=== PATIENT | female | born 2005 | race Hispanic/Latino ===

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

== ENCOUNTER 2024-06-14 16:36 | Emergency (ER) | payer SELFPAY ==
[~2024-06-14] VITALS: Ht 167.6 cm; Wt 133.8 kg
[2024-06-14 19:49] VITALS: BP 130/65; PULSE 72; RESP 16; TEMP 98.6; O2SAT 99
== END 2024-06-14 20:37 | disposition home or self-care (01) ==
LOC: EDH 16:36
DX: S92.534A Nondisplaced fracture of distal phalanx of right lesser toe(s), initial encounter for closed fracture (principal); Z79.899 Other long term (current) drug therapy; X58.XXXA Exposure to other specified factors, initial encounter; Y93.89 Activity, other specified; Y92.89 Other specified places as the place of occurrence of the external cause; Y99.8 Other external cause status
CPT/HCPCS: 73660

== ENCOUNTER 2025-05-30 08:15 | Emergency (ER) | payer SELFPAY ==
[~2025-05-30] VITALS: Ht 167.6 cm; Wt 115.7 kg
--- NOTE | 2025-05-30 08:32 | ERN ---
General Chief Complaint: Abdominal Pain Stated Complaint: ABDOMINAL PAIN Time Seen by MD: 08:17 Source: patient History of Present Illness Initial Comments Patient is a 19-year-old female coming in complaining of abdominal pain. Long with the abdominal pain patient states he has been having diarrhea. She states he has been having fever or chills. Allergies: Coded Allergies: No Known Drug Allergies (Unverified Allergy, Unknown, 06/20/23) Home Meds Active Scripts Nitrofurantoin/Nitrofuran Mac (Macrobid) 100 Mg Cap, 1 CAP PO BID for 7 Days, #14 CAP 0 Refills Prov:[employer]TI [employer]IST 06/21/23 Past Medical History Past Medical History: No Pertinent History Medical History Other: denies pmhx Past Surgical History: None Female( History) LMP: May 17, 2025 ROS Dictation CONSTITUTIONAL: No chills, no fever, no weakness, no diaphoresis, no malaise. HEAD/FACE: No signs of trauma. EENT: No eye pain, no blurred vision, no tearing, no double vision, no ear pain, no ear discharge, no nose pain, no nasal congestion, no throat pain, no throat swelling, no mouth pain. RESPIRATORY: No cough, no orthopnea, no SOB, no stridor, no wheezing. CARDIOVASCULAR: No chest pain, no edema, no palpitations, no syncope. GASTROINTESTINAL/ABDOMINAL: abdominal pain, no constipation, diarrhea, no nausea, no vomiting. GENITOURINARY: No abnormal discharge, no dysuria, no frequent urination, no hematuria. No complaints of pain in the genitals. MUSCULOSKELETAL: No back pain, no gout, no joint pain, no joint swelling, no muscle pain, no muscle stiffness, no neck pain. INTEGUMENTARY: No change in color, no change in hair/nails, no dryness, no lesion, no lumps, no rash. NEUROLOGICAL/PSYCH: No anxiety, not depressed, no emotional problem, no headache, no numbness, no pre-existing deficit, no history of seizures, no tremors, no weakness. HEMATOLOGIC/LYMPHATIC: Not anemic, no history of blood clots, no apparent bleeding, no bruising, glands not swollen. All Systems Negative, Except as Noted. Physical Exam Physical Exam Dictation VITAL SIGNS: Reviewed. GENERAL APPEARANCE: Alert, oriented x3, no acute distress, obese. HEAD AND FACE: Non-traumatic. EYES: PERRL, pink conjunctivas, eyelid no trauma, anterior chamber clear. EARS: Pinnas intact and no signs of trauma or erythema. Ear canals clear and no discharge. TMs no erythema. NOSE: No discharge, no bleeding. OROPHARYNX: Mouth normal, teeth no caries, tongue pink. Pharynx clear, no erythema. Tonsils no exudates, no abscesses noted. Mucous membrane moist. NECK: Supple, non-tender, no thyromegaly, no masses, no JVD, no bruits. BREAST: Deferred. CHEST: No tenderness, no crepitus, no paradoxical movement, no retractions. LUNGS: Clear, well-ventilated, symmetric, no rales, no wheezing, no rhonchi, no stridor, good breath sounds bilaterally. HEART: Regular rate, regular rhythm, no murmur, no gallops. VASCULAR: No peripheral edema. ABDOMEN: Soft, positive bowel sounds, nondistended, no guarding, epigastric tender, no rebound, no masses no hepatomegaly, no splenomegaly, no Calzada's sign, no hernias. RECTAL: Deferred. GENITAL: Deferred. NEUROLOGICAL: Normal speech, gross motor function intact, gross sensory function intact. MUSCULOSKELETAL: Neck nontender, full range of motion, back nontender, full range of motion. EXTREMITIES: Nontender, full range of motion. SKIN: Color pink, dry, no turgor, no rash, no lacerations, no abrasions, no contusions. LYMPHATICS: Deferred. Results Laboratory and Microbiology Lab and Micro Result Laboratory Tests Test 05/30/25 08:25 05/30/25 08:31 Urine Color YELLOW (YELLOW) Urine Appearance CLOUDY (CLEAR) H Urine pH 6.5 (5.0-8.0) Urine Specific [place] 1.026 (1.001-1.031) Urine Protein 10 mg/dL (NEGATIVE) H Urine Glucose (UA) NEGATIVE mg/dL (NEGATIVE) Urine Ketones 5 mg/dL (NEGATIVE) H Urine Occult Blood NEGATIVE (NEGATIVE) Urine Nitrate NEGATIVE (NEGATIVE) Urine Bilirubin NEGATIVE mg/dL (NEGATIVE) Urine Urobilinogen 0.2 mg/dL (0.2-1.0) Urine Leukocyte Esterase NEGATIVE Stephanie/uL Urine RBC 2-5 /HPF (0-1) H Urine WBC 6-10 /HPF (0-1) H Urine Squamous Epithelial Cells MANY /HPF (0-2) Urine Bacteria None /HPF (None Seen) Urine HCG, Qualitative NEGATIVE (NEGATIVE) Urine Opiates Screen NEGATIVE (NEGATIVE) Urine Barbiturates Screen NEGATIVE (NEGATIVE) Urine Phencyclidine Screen NEGATIVE (NEGATIVE) Urine Amphetamines Screen NEGATIVE (NEGATIVE) Urine Benzodiazepines Screen NEGATIVE (NEGATIVE) Urine Cocaine Screen NEGATIVE (NEGATIVE) Urine Marijuana (THC) Screen POSITIVE (NEGATIVE) H White Blood Count 16.2 K/uL (4.8-10.8) H Red Blood Count 4.69 MIL/uL (4.00-5.50) Hemoglobin 14.0 g/dL (12.0-16.0) Hematocrit 42.5 % (36-48) Mean Corpuscular Volume 90.6 fL (80-100) Mean Corpuscular Hemoglobin 29.9 pg (27.0-33.0) Mean Corpuscular Hemoglobin Concent 32.9 g/dL (32.0-36.0) Red Cell Distribution Width 13.0 % (11.0-15.5) Platelet Count 326 K/uL (130-400) Mean Platelet Volume 11.1 fL (7.5-10.5) H Immature Granulocyte % (Auto) 0.5 % (0-1) Neutrophils (%) (Auto) 92.7 % (40.0-77.0) H Lymphocytes (%) (Auto) 4.2 % (21.0-51.0) L Monocytes (%) (Auto) 2.2 % (3.0-13.0) L Eosinophils (%) (Auto) 0.2 % (0.0-8.0) Basophils (%) (Auto) 0.2 % (0.0-5.0) Neutrophils # (Auto) 15.0 K/uL (1.8-7.7) H Lymphocytes # (Auto) 0.7 K/uL (1.0-4.8) L Monocytes # (Auto) 0.4 K/uL (0.1-1.0) Eosinophils # (Auto) 0.03 K/uL (0.00-0.70) Basophils # (Auto) 0.03 K/uL (0.00-0.20) Absolute Immature Granulocyte (auto 0.08 K/uL (0-1) Nucleated Red Blood Cells 0.0 % (0.0-0.19) White Cell Morphology Comment See comments Sodium Level 139 mmol/L (136-145) Potassium Level 3.6 mmol/L (3.5-5.1) Chloride Level 102 mmol/L (101-111) Carbon Dioxide Level 30 mmol/L (21-32) Blood Urea Nitrogen 16 mg/dL (7-18) Creatinine 0.9 mg/dL (0.5-1.0) Glomerular Filtration Rate Calc 94 mL/min (>90) Random Glucose 105 mg/dL (70-105) Total Calcium 8.7 mg/dL (8.5-10.1) Total Bilirubin 0.5 mg/dL (0.2-1.0) Aspartate Amino Transf (AST/SGOT) 43 U/L (10-37) H Alanine Aminotransferase (ALT/SGPT) 84 U/L (12-78) H Alkaline Phosphatase 98 U/L (50-136) Total Protein 7.9 g/dL (6.0-8.3) Albumin 3.6 g/dL (3.5-5.0) Lipase 23 U/L (16-77) Labs Reviewed?: Yes MDM MDM: Differential diagnosis: GASTRITIS, VIRAL GASTROENTERITIS, APPENDICITIS, DRUG ABUSE Rationale: Tests considered and ordered secondary to shared decision making include: Previous outside records reviewed: Old ER visits. Risk of complication and/or morbidity or mortality of patient management: None Medications-Per medication reconciliation Need for hospitalization: Patient does not meet criteria for hospitalization. Need for emergency major/minor surgery: No There are no social concerns with this patient. PATIENT IS A 19-YEAR-OLD FEMALE COMING IN WITH THE PAIN. PER PATIENT SHE HAS BEEN HAVING THESE SYMPTOMS FOR A COUPLE OF DAYS LABORATORY WORKUP POSITIVE FOR MARIJUANA LEUKOCYTOSIS TO PROPERLY EVALUATED ANY PATHOLOGY A CT NEEDS TO BE PERFORMED DUE TO THE PRESENTATION OF THE PAIN. PATIENT WILL BE DISCHARGED IN STABLE CONDITION WITH A DIAGNOSIS OF CANNABIS ABUSE. ED Course Orders Procedure Category Date Status Time Cbc With Differential LAB 05/30/25 Complete 08:21 Comprehensive LAB 05/30/25 Complete Metabolic Panel 08:21 ,Urine Test LAB 05/30/25 Complete 08:21 Urinalysis Profile LAB 05/30/25 Complete 08:21 0.9%Nacl 1000ml (Ns PHA 05/30/25 Complete 1000ml) 08:30 Ondansetron 4mg Inj PHA 05/30/25 Complete (Zofran 4mg Inj) 08:30 Pantoprazole 40mg Inj PHA 05/30/25 Complete (Protonix 40mg Inj 08:30 Lipase LAB 05/30/25 Complete 08:21 Culture Urine BONNY 05/30/25 In Process 09:06 Ct Abdomen/Pelvis W/O CT 05/30/25 Resulted Contrast 09:35 Drug Screen Urine LAB 05/30/25 Complete 09:41 Current Medications Medications (Trade) Dose Ordered Sig/Sy Route PRN Reason Start Time Stop Time Status Last Admin Dose Admin Ondansetron HCl (zoFRAN 4MG INJ) 4 mg ONCE ONCE IVP 05/30/25 08:30 05/30/25 08:31 DC 05/30/25 09:52 Pantoprazole Sodium (PROTonix 40MG INJ) 40 mg ONCE ONCE IVP 05/30/25 08:30 05/30/25 08:31 DC 05/30/25 09:52 Sodium Chloride 1,000 ml @ 0 mls/hr ONCE ONCE IV 05/30/25 08:30 05/30/25 08:31 DC 05/30/25 09:52 Vital Signs Date Time Temp Pulse Resp B/P (MAP) Pulse Ox O2 Delivery O2 Flow Rate FiO2 05/30/25 08:21 97.7 78 16 120/58 97 Room Air* 0 21 05/30/25 08:17 97.7 78 16 120/58 97 Room Air 0 DX & DISP Disposition: Discharge Departure Impression: Primary Impression: Gastritis Additional Impression: Cannabis abuse Condition: Stable Additional Instructions: FOLLOW-UP WITH PRIMARY CARE PROVIDER IN 1 TO 2 DAYS. TAKE MEDICATIONS DIRECTED HERE IN THE EMERGENCY ROOM. OKAY TO CONTINUE HOME MEDICATIONS UNLESS OTHERWISE DISCUSSED DURING YOUR VISIT IN THE EMERGENCY ROOM TODAY. RETURN TO YOUR NEAREST EMERGENCY ROOM IF SYMPTOMS WORSEN OR IF THERE IS NO IMPROVEMENT. CALL 911 IF YOU NEED IMMEDIATE ASSISTANCE. TAKE TYLENOL [id number] NEEDED AND IF NO CONTRAINDICATIONS ARE PRESENT. INCREASE ORAL HYDRATION. A WOUND CULTURE OR URINE CULTURE WAS ORDERED HERE IN THE EMERGENCY ROOM DEPARTMENT PLEASE FOLLOW-UP WITH PRIMARY CARE PROVIDER AND ADVISE THEM TO GET REPORTS FROM OUR FACILITY. IF YOU HAD ANY BRI WRAP/SPLINTS THAT WERE APPLIED HERE, PLEASE DO NOT REMOVE THEM UNTIL YOU SEE YOUR PRIMARY CARE OR SPECIALTY. REFERRALS: Referrals: SELF,REFERRAL (PCP) ELDA HER MD Time of Disposition: 11:55 KENNEDY MARKHAM MD May 30, 2025 08:32
[2025-05-30 08:41] LABS: APPEARANCE,URINE CLOUDY (CLEAR); GLUCOSE, URINE (UA) NEGATIVE (NEGATIVE); LEUKOCYTE ESTERASE ,URINE NEGATIVE Leu/uL (NEGATIVE); NITRATE,URINE NEGATIVE (NEGATIVE); OCCULT BLOOD,URINE NEGATIVE (NEGATIVE)
[2025-05-30 08:45] LABS: ADD UA MICROSCOPIC YES
[2025-05-30 08:46] LABS: HCG,QUALITATIVE URINE NEGATIVE (NEGATIVE)
[2025-05-30 08:47] LABS: SQUAMOUS EPITHELIAL CELL,UR MANY /HPF (0-2)
[2025-05-30 08:49] LABS: CREATININE 0.9 mg/dL (0.5-1.0); GLOMERULAR FILTR. RATE CALC 94.0 mL/min (>90); GLUCOSE,RANDOM 105.0 mg/dL (70-105); SODIUM SERUM 139.0 mmol/L (136-145); UREA NITROGEN, BLOOD 16.0 mg/dL (7-18)
[2025-05-30 08:53] LABS: ASPARTATE AMINOTRANSFERASE 43.0 U/L (10-37); TOTAL PROTEIN, SERUM 7.9 g/dL (6.0-8.3)
[2025-05-30 08:58] LABS: IMMATURE GRANULOCYTE ABSOLUTE 0.08 K/uL (0-1); NUCLEATED RED BLOOD CELLS 0.0 % (0.0-0.19); PLATELET COUNT (AUTO) 326 K/uL (130-400); RED BLOOD CELL COUNT(AUTO) 4.69 MIL/uL (4.00-5.50); RED CELL DISTRIBUTION WIDTH 13.0 % (11.0-15.5); WHITE BLOOD COUNT (AUTO) 16.2 K/uL (4.8-10.8)
[2025-05-30] MEDS: 0.9%NACL 1000ML 1,000 ML IV ONE (09:52)
[2025-05-30 10:14] LABS: AMPHET/METH SCREEN,URINE NEGATIVE (NEGATIVE); BARBITURATE SCREEN, URINE NEGATIVE (NEGATIVE); CANNABINOID SCREEN,URINE POSITIVE (NEGATIVE); COCAINE SCREEN,URINE NEGATIVE (NEGATIVE)
--- NOTE | 2025-05-30 11:51 | HMCIMG ---
EXAM: CT Abdomen and Pelvis without IV contrast CLINICAL HISTORY: Abdominal pain. TECHNIQUE: Thin collimated axial CT images of the abdomen and pelvis were obtained with sagittal and coronal reformatted images also submitted. CT scan is done according to ALARA (As Low As Reasonably Achievable). CONTRAST: None. COMPARISON: None. FINDINGS: Unremarkable visualized lung parenchyma. No focal abnormality within the liver, gallbladder, pancreas, spleen, adrenals, or kidneys. There is no obvious bowel wall thickening. Bowel loops are normal in caliber without evidence of obstruction or ileus. The appendix is normal. There is no abnormality within the urinary bladder. Unremarkable reproductive organs. No lymphadenopathy. No free fluid. There is no acute osseous abnormality. Mild lumbar spondylosis. IMPRESSIONS: No acute process in the abdomen or pelvis. /[place]
[2025-05-30 12:05] VITALS: BP 125/70; PULSE 77; RESP 18; TEMP 97.7; O2SAT 98
== END 2025-05-30 12:06 | disposition home or self-care (01) ==
LOC: EDH 08:15
DX: K29.70 Gastritis, unspecified, without bleeding (principal); F12.10 Cannabis abuse, uncomplicated; Z79.899 Other long term (current) drug therapy
CPT/HCPCS: 99285; 74176; 96374; 96361; 96375; 80053; 80305; 83690; 85025; 87086; 81025; 36415; 81001; J7030; J2405; J2470